=== PATIENT | male | born 1960 | race Caucasian/White ===

== ENCOUNTER 2018-06-27 13:40 | Emergency (ER) | payer MEDICAID ==
[~2018-06-27] VITALS: Ht 172.7 cm; Wt 79.3 kg
[~2018-06-27 13:40] MED LIST: LISI-170 PO
[2018-06-27] MEDS ORDERED: TAMS-11 PO (14:06)
--- NOTE | 2018-06-27 14:08 | NUR ---
PT WITH ONSET OF UPPER ABD PAIN WITH GOLF BALL SIZE PALAPBLE MASS WITH PAIN RADIATING INTO RIGHT TESTICLE AREA SINCE LAST NIGHT. DENIES N/V/D OR ANY BOWEL PROBLEMS. PT VSS. MARIELA HAND AT BEDSIDE. PT ASSESSMENT, POC DISCUSSED AND QUESTIONS ANSWERED. ORDERS REC'D. CALL LIGHT W/I REACH
[2018-06-27 14:30] LABS: BASOPHILS # (AUTO) 0.04 x10^3/uL (0-0.1); BASOPHILS % (AUTO) 0 % (0-1); EOSINOPHILS # (AUTO) 0.23 x10^3/uL (0-0.4); EOSINOPHILS % (AUTO) 2 % (1-7); LYMPHOCYTES # (AUTO) 2.39 x10^3/uL (1-3.4); LYMPHOCYTES % (AUTO) 22 % (22-44); MD NO; MEAN CORPUSCULAR HGB CONC 33.9 g/dL (33.2-36.2); MEAN CORPUSCULAR VOLUME 88.7 fL (81-97); MEAN PLATELET VOLUME 7.4 fL (7.4-10.4); MONOCYTES # (AUTO) 0.87 x10^3/uL (0.2-0.8); MONOCYTES % (AUTO) 8 % (2-9); NEUTROPHILS # (AUTO) 7.49 x10^3/uL (1.8-6.8); NEUTROPHILS % (AUTO) 68 % (42-75); PLATELET COUNT 304 x10^3/uL (130-400); RED BLOOD COUNT 5.07 x10^6/uL (4.38-5.82); RED CELL DISTRIBUTION WIDTH 14.2 % (9.4-14.8)
[2018-06-27] MEDS ORDERED: OXYcodone/APAP 5/325MG TABLET PO ONE (14:30)
[2018-06-27] MEDS ORDERED: ONDANSETRON ODT 4 MG PO ONE (14:30)
[2018-06-27 14:37] LABS: ANION GAP 5 mmol/L (5-15); CALCIUM 8.7 mg/dL (8.5-10.1); CHLORIDE 109 mmol/L (98-107); CREATININE 1.29 mg/dL (0.7-1.3)
--- NOTE | 2018-06-27 14:43 | NUR ---
assumed care of pt while primary rn at lunch. pt taken to us
[2018-06-27] MEDS ORDERED: ONDANSETRON ODT 4 MG ONE (14:51)
[2018-06-27] MEDS ORDERED: OXYcodone/APAP 5/325MG TABLET ONE (14:52)
--- NOTE | 2018-06-27 15:10 | NUR ---
PT RTD FROM . MED NOTED FOR ABD PAIN 06/15
[2018-06-27] MEDS ORDERED: MORPHINE SULFATE 4 MG/ML, 1ML IVPush PRN (16:30)
[2018-06-27] MEDS ORDERED: ONDANSETRON 2MG/ML, 2ML IVPush ONE (16:30)
[2018-06-27] MEDS ORDERED: SODIUM CHLORIDE FLUSH 10ML SYR IVF ONE (16:30)
[2018-06-27 16:31] LABS: MICROSCOPIC NOT IND
[2018-06-27 16:39] LABS: CULTURE INDICATED? NO
[2018-06-27 17:07] VITALS: BP 115/62
--- NOTE | 2018-06-27 17:10 | NUR ---
PIV STARTED, PT TO CT WITH TECH TRANSPORT. PT VERBALIZES UNDERSTANDING OF NPO STATUS
[2018-06-27] MEDS ORDERED: OMNIPAQUE 350 MG/ML, 100ML BOTTLE ONE (17:23)
[2018-06-27] MEDS ORDERED: ONDANSETRON 2MG/ML, 2ML ONE (17:27)
[2018-06-27] MEDS ORDERED: MORPHINE SULFATE 4 MG/ML, 1ML ONE (17:27)
--- NOTE | 2018-06-27 17:32 | NUR ---
PAIN MED OFFERED. PT DECLINES AT THIS TIME, RATES PAIN 2/10. INSTRUCTED PT TO NOTIFY RN IF PAIN INCREASES
--- NOTE | 2018-06-27 18:21 | NUR ---
CONTACTED [facility] VERIFIED THAT THEY HAVE THE YELLOW TOP AND CAN RUN THE DOA
--- NOTE | 2018-06-27 18:27 | NUR ---
Patient/Caregiver given discharge instructions and they have confirmed that they understand the instructions. Patient ambulatory with steady gait.
[2018-06-27 18:48] LABS: AMPHETAMINE SCREEN, URINE Positive (Negative); BARBITURATE SCREEN, URINE Negative (Negative); BENZODIAZEPINE SCREEN, URINE Negative (Negative); CANNABINOID SCREEN, URINE Negative (Negative); COCAINE SCREEN, URINE Negative (Negative); METHADONE SCREEN, URINE Negative (Negative); OPIATE SCREEN, URINE Negative (Negative)
== END 2018-06-27 18:28 | disposition home or self-care (01) ==
LOC: ED 15:40
DX: K46.9 Unspecified abdominal hernia without obstruction or gangrene (principal)
CPT/HCPCS: 36415; 74177; 76705; 76870; 80048; 80307; 81003; 83605; 85025; 99284; Q0162; Q9967; 99283

== ENCOUNTER 2019-12-12 15:44 | Emergency (ER) | payer MEDICAID ==
[~2019-12-12] VITALS: Ht 172.7 cm; Wt 72.0 kg
[~2019-12-12 15:44] MED LIST changes: +TAMS-11 PO
[2019-12-12 15:46] VITALS: BP 111/71
[2019-12-12] MEDS ORDERED: LIDOCAINE 1%, 10ML INFIL ONE (16:00)
[2019-12-12] MEDS ORDERED: LIDOCAINE-MPF 1%, 5ML ONE (16:31)
--- NOTE | 2019-12-12 19:15 | NUR ---
not in lobby
--- NOTE | 2019-12-12 19:30 | NUR ---
not in lobby
--- NOTE | 2019-12-12 19:52 | NUR ---
not in lobby
== END 2019-12-12 17:19 ==
LOC: ED 17:04
DX: S01.01XA Laceration without foreign body of scalp, initial encounter (principal); S09.90XA Unspecified injury of head, initial encounter; I10 Essential (primary) hypertension; X58.XXXA Exposure to other specified factors, initial encounter; Y93.89 Activity, other specified; Y92.098 Other place in other non-institutional residence as the place of occurrence of the external cause; Y99.8 Other external cause status
CPT/HCPCS: 12032; 99284